=== PATIENT | male | born 1970 | race Caucasian/White ===

== ENCOUNTER 2020-12-21 09:38 | Emergency (ER) | payer OTHER ==
[~2020-12-21] VITALS: Ht 175.3 cm; Wt 105.2 kg
[2020-12-21] MEDS ORDERED: VITAMIN B6100 MG/2.5 PO (09:52)
[2020-12-21] MEDS ORDERED: TRIAMTERENE/HCT1 CA1 PO (09:52)
[2020-12-21] MEDS ORDERED: CARVEDILOL25 MG PO (09:52)
[2020-12-21] MEDS ORDERED: COZAAR100 MG PO (09:52)
[2020-12-21] MEDS ORDERED: MAGNESIUM250 M1 PO (09:53)
[2020-12-21] MEDS ORDERED: ASHWAGANDHA RO300 MG PO (09:53)
[2020-12-21] MEDS ORDERED: COQ-1030 MG PO (09:53)
[2020-12-21] MEDS ORDERED: CALCIUM 600+D1 EACH PO (09:53)
[2020-12-21 10:27] LABS: URINE BILIRUBIN NEGATIVE (Negative); URINE BLOOD 3+ (Negative); URINE CLARITY CLEAR; URINE COLOR YELLOW; URINE GLUCOSE-RANDOM NEGATIVE (Negative); URINE KETONES NEGATIVE (Negative); URINE LEUKOCYTES-REFLEX NEGATIVE (Negative); URINE NITRITE-REFLEX NEGATIVE (Negative); URINE PROTEIN 1+ (Negative); URINE SPECIFIC GRAVITY >= 1.030 (1.005-1.030); URINE UROBILINOGEN 0.2 E.U./dl (0.2-1.0)
[2020-12-21 10:34] LABS: CASTS None Seen /LPF (None Seen); CRYSTALS None Seen /LPF (None Seen); SQUAMOUS 0-3 Few /LPF (0-3); URINE RBC 0-2 Rare /HPF (0-2); URINE WBC-REFLEX 6-15 Few /HPF (0-5)
[2020-12-21] MEDS ORDERED: NORCO5 PO ×3 (12:07→12:17)
[2020-12-21] MEDS ORDERED: ONDANSETRON ODT4 MG PO (12:07)
[2020-12-21] MEDS ORDERED: FLOMAX0.4 MG PO (12:07)
[2020-12-21 12:17] VITALS: BP 154/70
== END 2020-12-21 12:18 | disposition home or self-care (01) ==
LOC: M.ERS 09:38
PROVIDERS: Emergency Medicine Emergency Medical Services
DX: N20.0 Calculus of kidney (principal); R11.2 Nausea with vomiting, unspecified; I10 Essential (primary) hypertension; Z79.899 Other long term (current) drug therapy; Z98.890 Other specified postprocedural states